=== PATIENT | male | born 1945 | race African-American/Black ===

== ENCOUNTER 2024-04-22 21:30 | Emergency (ER) | payer OTHER ==
[~2024-04-22] VITALS: Ht 180.3 cm; Wt 65.0 kg
[2024-04-22 21:33] VITALS: O2SAT 98
[2024-04-22 22:37] LABS: EOSINOPHILS % 4.3 % (0.0-5.0); HEMATOCRIT. 36.5 % (42.0-52.0); HEMOGLOBIN. 12.6 g/dL (14.0-18.0); LYMPHOCYTES % 40.3 % (20.0-50.0); MEAN CORPUSCULAR HEMOGLOBIN 30.2 pg (28.0-32.0); MEAN CORPUSCULAR HGB CONC 34.4 g/dL (31.0-37.0); MEAN CORPUSCULAR VOLUME 87.8 fL (80.0-94.0); MEAN PLATELET VOLUME 8.4 fl (7.4-10.4); MONOCYTES % 9.7 % (2.0-8.0); NEUTROPHILS % 44.7 % (40.0-76.0); PLATELET 177 x1000/uL (130-400); RED BLOOD CELL COUNT 4.16 mill/uL (4.7-6.1); RED CELL DISTRIBUTION WIDTH 15.3 % (11.6-14.6); WHITE BLOOD COUNT 8.9 x1000/uL (4.5-11.0)
[2024-04-22 22:50] LABS: CARBON DIOXIDE 33 mEq/L (21-32); CHLORIDE 105 mEq/L (98-107); POTASSIUM 4.2 mEq/L (3.5-5.1); SODIUM 144 mEq/L (136-145)
[2024-04-22 22:51] LABS: CALCIUM 8.9 mg/dL (8.7-10.4)
[2024-04-22 22:56] LABS: GLUCOSE 127 mg/dL (70-105); TROPONIN I HIGH SENSITIVITY 26 ng/L (3.0-53); UREA NITROGEN BLOOD 21 mg/dL (9-23)
[2024-04-23 00:49] LABS: TROPONIN I HIGH SENSITIVITY 27 ng/L (3.0-53)
[2024-04-23 01:25] VITALS: BP 144/99; PULSE 59; RESP 14; TEMP 37; O2SAT 98
== END 2024-04-23 01:33 ==
LOC: ER 21:30
DX: R53.1 Weakness (principal); F03.90 Unspecified dementia, unspecified severity, without behavioral disturbance, psychotic disturbance, mood disturbance, and anxiety; I10 Essential (primary) hypertension; I67.82 Cerebral ischemia; Z91.81 History of falling
CPT/HCPCS: 36415; 71045; 80048; 83605; 84484; 85025; 93005; 99285; A4606